=== PATIENT | male | born 2000 | race Caucasian/White ===

== ENCOUNTER 2018-05-09 00:09 | Emergency (ER) | payer SELFPAY ==
[2018-05-09] MEDS ORDERED: HYDROmorphone 1 MG/ML Syringe IVPUSH ONE ×2 (00:21→01:38)
[2018-05-09] MEDS ORDERED: Sodium Chloride 0.9% 1,000 ML IV ONE (00:21)
[2018-05-09] MEDS ORDERED: Ondansetron 4 MG/2 ML SDV IVPUSH ONE (00:25)
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
[2018-05-09] MEDS ORDERED: Bacitracin Oint 1 GM U/D Packet TOP ONE (01:32)
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
== END 2018-05-09 02:05 | disposition home or self-care (01) ==
LOC: MW.ED 00:09
DX: S00.83XA Contusion of other part of head, initial encounter (principal); S00.531A Contusion of lip, initial encounter; V29.40XA Motorcycle driver injured in collision with unspecified motor vehicles in traffic accident, initial encounter
CPT/HCPCS: 70450; 72125; 73030; 73090; 73130; 73562; 96361; 96374; 96375; 96376; 99284; J1170; J2405; J7040

== ENCOUNTER 2019-11-30 03:10 | Emergency (ER) | payer SELFPAY ==
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
[2019-11-30] MEDS ORDERED: Sodium Chloride 0.9% 1,000 ML IV ONE (03:40)
--- NOTE | 2019-11-30 03:49 | CR ---
INDICATION: Chest pain TECHNIQUE: Chest radiograph 1 view COMPARISON: None FINDINGS: Mediastinum: The mediastinum is normal in appearance. The heart silhouette is normal in size and morphology. Lung: Both lungs are unremarkable in appearance. No sign of pleural effusion seen. No pneumothorax is identified. Bone and Soft tissue: Unremarkable for age. IMPRESSION: 1. No acute cardiopulmonary disease is seen. Dictated by: Markell Bobby MD @ 11/30/2019 03:47:00 (Electronically Signed)
[2019-11-30 03:56] LABS: ACETAMINOPHEN <2.0 ug/mL; BLOOD UREA NITROGEN,BUN 21 mg/dL (7.0-18.0); CARBON DIOXIDE,CO2 26.5 mmol/L (21.0-32.0); CHLORIDE,CL 104 mmol/L (98-107); GLUCOSE RANDOM 168 mg/dL (74-106); POTASSIUM,K 4.9 mmol/L (3.5-5.1); SODIUM,NA 141 mmol/L (136-148)
== END 2019-11-30 06:48 | disposition home or self-care (01) ==
LOC: MW.ED 03:10
DX: T40.5X1A Poisoning by cocaine, accidental (unintentional), initial encounter (principal)
CPT/HCPCS: 36415; 71045; 80053; 80305; 80307; 85025; 93005; 96360; 99285; J7030; 99284

== ENCOUNTER 2020-07-01 19:44 | Emergency (ER) | payer SELFPAY ==
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
--- NOTE | 2020-07-01 21:46 | CR ---
Right knee: AP, lateral and sunrise patellar views of the right knee were obtained. Comparison: Previous right knee study of 05/09/18. Small bony density is noted off the medial patella which is well corticated and appears old and believed to be incidental. This is stable from previous exam. Patellofemoral joint is preserved. Possible minimal joint effusion. Medial and lateral joint compartments are maintained in height. Impression: 1. Possible small joint effusion. 2. Stable bony density off the medial patella. 3. No acute bony abnormality is appreciated. Diagnostic code #2 This report was dictated in MDT
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
== END 2020-07-01 23:00 | disposition home or self-care (01) ==
LOC: MW.ED 19:44
DX: S83.91XA Sprain of unspecified site of right knee, initial encounter (principal); F17.210 Nicotine dependence, cigarettes, uncomplicated; W50.0XXA Accidental hit or strike by another person, initial encounter
CPT/HCPCS: 73562-26-RT; 73562-RT; 93971-26-RT; 93971-RT; 99283; 99284-25

== ENCOUNTER 2025-05-09 19:18 | Inpatient (IN) | payer SELFPAY ==
[2025-05-09] MEDS: Ondansetron 4 MG/2 ML SDV IVPUSH ONE (19:44)
[2025-05-09] MEDS: Ketorolac 30 MG/ML SDV IVPUSH ONE (19:44)
[2025-05-09 19:54] LABS: MEAN PLATELET VOLUME 9.9 fL (9.4-12.4); NRBC ABSOLUTE 0.00 K/uL (0.00-0.02); NRBC PERCENT 0.0 /100WBC (0.0-0.2); PLATELET COUNT,PLT 321 K/uL (150-400); RED BLOOD CELL COUNT 4.63 M/uL (4.52-5.90); WHITE BLOOD CELL COUNT,WBC 19.79 K/uL (3.9-11.3)
[2025-05-09 20:21] LABS: A/G RATIO 0.6 (0.9-1.6); ALANINE AMINOTRANSFERASE,ALT 39.0 IU/L (14-63); ASPARTATE AMNIOTRANSFERASE,AST 21.0 IU/L (15-37); BILIRUBIN TOTAL 0.5 mg/dL (0.2-1.0); BLOOD UREA NITROGEN,BUN 8.0 mg/dL (7.0-18.0); CARBON DIOXIDE,CO2 28.2 mmol/L (21.0-32.0); CHLORIDE,CL 95.0 mmol/L (98-107); CREATININE 1.1 mg/dL (0.8-1.3); EST CRCL DRUG DOSING (CG) 131.56 mL/min; GLUCOSE RANDOM 102.0 mg/dL (74-106); POTASSIUM,K 3.3 mmol/L (3.5-5.1); PROTEIN TOTAL,TP 6.9 g/dL (6.4-8.2); SODIUM,NA 133.0 mmol/L (136-148)
[2025-05-09 20:24] LABS: LACTIC ACID 0.7 mmol/L (0.4-2.0)
[2025-05-09 20:27] LABS: BAND ABSOLUTE MAN 0.40; BAND PERCENT MAN 2 %; EOSINOPHILS ABSOLUTE MAN 0.20 K/uL (0.00-0.45); EOSINOPHILS PERCENT MAN 1 % (0-6); LYMPHOCYTES ABSOLUTE MAN 2.97 K/uL (1.00-4.80); LYMPHOCYTES PERCENT MAN 15 % (24-44); MONOCYTES ABSOLUTE MAN 1.98 K/uL (0.00-0.80); MONOCYTES PERCENT MAN 10 % (0-8); SEG NEUTROPHILS ABSOLUTE MAN 14.25 K/uL (1.80-7.70); SEG NEUTROPHILS PERCENT MAN 72 % (41-71)
[2025-05-09 20:29] LABS: ESTIMATED GFR 95.0 mL/min (>60)
[2025-05-09] MEDS: Iopamidol 755 Mg/ML 100 ML Bottle IVPUSH ONE (20:47)
[2025-05-09 21:17] LABS: APPEARANCE,URINE CLEAR; GLUCOSE,URINE NEGATIVE (NEGATIVE); OCCULT BLOOD,URINE NEGATIVE (NEGATIVE)
[2025-05-09] MEDS ORDERED: Ondansetron 4 MG/2 ML SDV IVPUSH PRN (22:35)
[2025-05-09] MEDS ORDERED: Naloxone 0.4 MG/ML SDV IVPUSH PRN (22:39)
[2025-05-09] MEDS: NS with KCl 40mEq 1,000 ML IV SCH (22:54)
[2025-05-09] MEDS ORDERED: Sodium Chloride 0.9% 10 ML Syringe FLUSH PRN (23:15)
[2025-05-09] MEDS ORDERED: Sodium Chloride 0.9% 2.5 ML Syringe FLUSH PRN (23:15)
[2025-05-10 05:47] LABS: MEAN PLATELET VOLUME 10.1 fL (9.4-12.4); NRBC ABSOLUTE 0.00 K/uL (0.00-0.02); NRBC PERCENT 0.0 /100WBC (0.0-0.2); PLATELET COUNT,PLT 261 K/uL (150-400); RED BLOOD CELL COUNT 3.88 M/uL (4.52-5.90); WHITE BLOOD CELL COUNT,WBC 16.41 K/uL (3.9-11.3)
[2025-05-10 06:06] LABS: BAND ABSOLUTE MAN 0.49; BAND PERCENT MAN 3 %; EOSINOPHILS ABSOLUTE MAN 0.16 K/uL (0.00-0.45); EOSINOPHILS PERCENT MAN 1 % (0-6); LYMPHOCYTES ABSOLUTE MAN 1.81 K/uL (1.00-4.80); LYMPHOCYTES PERCENT MAN 11 % (24-44); MONOCYTES ABSOLUTE MAN 1.64 K/uL (0.00-0.80); MONOCYTES PERCENT MAN 10 % (0-8); SEG NEUTROPHILS ABSOLUTE MAN 12.31 K/uL (1.80-7.70); SEG NEUTROPHILS PERCENT MAN 75 % (41-71)
[2025-05-10 06:10] LABS: A/G RATIO 0.5 (0.9-1.6); ALANINE AMINOTRANSFERASE,ALT 29.0 IU/L (14-63); ASPARTATE AMNIOTRANSFERASE,AST 14.0 IU/L (15-37); BILIRUBIN TOTAL 0.5 mg/dL (0.2-1.0); BLOOD UREA NITROGEN,BUN 7.0 mg/dL (7.0-18.0); CARBON DIOXIDE,CO2 26.5 mmol/L (21.0-32.0); CHLORIDE,CL 102.0 mmol/L (98-107); CREATININE 1.4 mg/dL (0.8-1.3); EST CRCL DRUG DOSING (CG) 100.77 mL/min; GLUCOSE RANDOM 101.0 mg/dL (74-106); POTASSIUM,K 3.7 mmol/L (3.5-5.1); PROTEIN TOTAL,TP 5.5 g/dL (6.4-8.2); SODIUM,NA 136.0 mmol/L (136-148)
[2025-05-10 06:11] LABS: ESTIMATED GFR 71.0 mL/min (>60)
[2025-05-11 05:57] LABS: MEAN PLATELET VOLUME 9.6 fL (9.4-12.4); NRBC ABSOLUTE 0.00 K/uL (0.00-0.02); NRBC PERCENT 0.0 /100WBC (0.0-0.2); PLATELET COUNT,PLT 263 K/uL (150-400); RED BLOOD CELL COUNT 3.95 M/uL (4.52-5.90); WHITE BLOOD CELL COUNT,WBC 14.32 K/uL (3.9-11.3)
[2025-05-11 06:16] LABS: BLOOD UREA NITROGEN,BUN 3.0 mg/dL (7.0-18.0); CARBON DIOXIDE,CO2 29.0 mmol/L (21.0-32.0); CHLORIDE,CL 102.0 mmol/L (98-107); CREATININE 0.9 mg/dL (0.8-1.3); EST CRCL DRUG DOSING (CG) 156.75 mL/min; GLUCOSE RANDOM 99.0 mg/dL (74-106); POTASSIUM,K 3.3 mmol/L (3.5-5.1); SODIUM,NA 137.0 mmol/L (136-148)
[2025-05-11 06:23] LABS: ESTIMATED GFR 121.0 mL/min (>60)
[2025-05-11 06:57] LABS: BAND ABSOLUTE MAN 4.44; BAND PERCENT MAN 31 %; EOSINOPHILS ABSOLUTE MAN 0.57 K/uL (0.00-0.45); EOSINOPHILS PERCENT MAN 4 % (0-6); LYMPHOCYTES ABSOLUTE MAN 3.15 K/uL (1.00-4.80); LYMPHOCYTES PERCENT MAN 22 % (24-44); METAMYELOCYTE ABSOLUTE MAN 0.57; METAMYELOCYTE PERCENT MAN 4 %; MONOCYTES ABSOLUTE MAN 0.57 K/uL (0.00-0.80); MONOCYTES PERCENT MAN 4 % (0-8); SEG NEUTROPHILS ABSOLUTE MAN 4.87 K/uL (1.80-7.70); SEG NEUTROPHILS PERCENT MAN 34 % (41-71)
[2025-05-11 06:59] LABS: MYELOCYTE ABSOLUTE MAN 0.14; MYELOCYTE PERCENT MAN 1 %
[2025-05-11] MEDS: Potassium Chloride 20 MEQ Tab.ER PO ONE (09:14)
== END 2025-05-11 13:02 | disposition home or self-care (01) | DRG 392 ==
LOC: MW.ED 19:18 → OBSVTOIN 21:22 → MW.MS 21:22
PROVIDERS: ADMIT Internal Medicine; ATTEND Internal Medicine
DX: K52.9 Noninfective gastroenteritis and colitis, unspecified (principal)
CPT/HCPCS: 36415; 74177; 74177-26; 80048; 80053; 81003; 82947; 83605; 83690; 83735; 85025; 87040; 87045; 87046; 87324; 87328; 87329; 87449; 87899; 96361; 96365; 96366; 96367; 96368; 96375; 99284; 99285-25; A9270-GY; G0378; J1885; J2405; J2543; J3480; J7030; Q9967

== ENCOUNTER 2025-06-21 17:58 | Emergency (ER) | payer SELFPAY ==
[2025-06-21] MEDS ORDERED: Sodium Chloride 0.9% 10 ML Syringe FLUSH PRN (18:13)
[2025-06-21] MEDS ORDERED: Sodium Chloride 0.9% 2.5 ML Syringe FLUSH PRN (18:13)
[2025-06-21] MEDS: Ketorolac 30 MG/ML SDV IVPUSH ONE (18:38)
[2025-06-21] MEDS: Ondansetron 4 MG/2 ML SDV IVPUSH ONE (18:38)
[2025-06-21 18:43] LABS: MEAN PLATELET VOLUME 10.3 fL (9.4-12.4); NRBC ABSOLUTE 0.02 K/uL (0.00-0.02); NRBC PERCENT 0.1 /100WBC (0.0-0.2); PLATELET COUNT,PLT 279 K/uL (150-400); RED BLOOD CELL COUNT 4.18 M/uL (4.52-5.90); WHITE BLOOD CELL COUNT,WBC 21.52 K/uL (3.9-11.3)
[2025-06-21 18:57] LABS: INR 1.33 (0.86-1.11)
[2025-06-21 19:14] LABS: A/G RATIO 0.6 (0.9-1.6); ALANINE AMINOTRANSFERASE,ALT 18 IU/L (14-63); ASPARTATE AMNIOTRANSFERASE,AST 24 IU/L (15-37); BILIRUBIN TOTAL 0.7 mg/dL (0.2-1.0); BLOOD UREA NITROGEN,BUN 7 mg/dL (7.0-18.0); CARBON DIOXIDE,CO2 23.6 mmol/L (21.0-32.0); CHLORIDE,CL 96 mmol/L (98-107); CREATININE 1.2 mg/dL (0.8-1.3); GLUCOSE RANDOM 185 mg/dL (74-106); POTASSIUM,K 3.5 mmol/L (3.5-5.1); PROTEIN TOTAL,TP 6.9 g/dL (6.4-8.2); SODIUM,NA 131 mmol/L (136-148)
[2025-06-21 19:24] LABS: BAND ABSOLUTE MAN 1.29; BAND PERCENT MAN 6 %; SEG NEUTROPHILS ABSOLUTE MAN 15.71 K/uL (1.80-7.70); SEG NEUTROPHILS PERCENT MAN 73 % (41-71)
[2025-06-21 19:24] LABS: APPEARANCE,URINE CLEAR; GLUCOSE,URINE NEGATIVE (NEGATIVE); OCCULT BLOOD,URINE NEGATIVE (NEGATIVE)
[2025-06-21 19:25] LABS: EOSINOPHILS ABSOLUTE MAN 0.22 K/uL (0.00-0.45); EOSINOPHILS PERCENT MAN 1 % (0-6); LYMPHOCYTES ABSOLUTE MAN 1.72 K/uL (1.00-4.80); LYMPHOCYTES PERCENT MAN 8 % (24-44); MONOCYTES ABSOLUTE MAN 2.58 K/uL (0.00-0.80); MONOCYTES PERCENT MAN 12 % (0-8)
[2025-06-21 19:31] LABS: EPITHELIAL CELLS,URINE NOT SEEN (NONE-FEW)
[2025-06-21 19:31] LABS: ESTIMATED GFR 86 mL/min (>60)
[2025-06-21] MEDS: Iopamidol 755 MG/ML 500 ML Multipack Bottle IVPUSH ONE (19:56)
[2025-06-21] MEDS: cefTRIAXone 2 GM in Water For Injection, Sterile 20 ML IVPUSH ONE (20:15)
[2025-06-21] MEDS: metroNIDAZOLE/Normal Saline 500 MG in Premix Bag 1 BAG IV ONE (20:15)
== END 2025-06-21 21:34 | disposition left against medical advice (07) ==
LOC: MW.ED 17:58
DX: K52.9 Noninfective gastroenteritis and colitis, unspecified (principal); E83.42 Hypomagnesemia
CPT/HCPCS: 36415; 74177; 80053; 81001; 83605; 83690; 83735; 85025; 85610; 85652; 86140; 87040; 96361; 96365; 96375; 99285; A4216; A9270; J0696; J1836; J1885; J2405; J7030; Q9967; 99283

== ENCOUNTER 2025-07-05 07:14 | Day surgery (SDC) | payer SELFPAY ==
[~2025-07-05 07:14] MED LIST: cefOXitin 2 GM in Water For Injection, Sterile 20 ML IVPUSH ONE
[2025-07-05] MEDS: Lactated Ringers 1,000 ML IV SCH (08:46)
[2025-07-05] MEDS ORDERED: Propofol 200 MG/20 ML SDV ONE ×2 (09:39→09:59)
== END 2025-07-05 10:57 | disposition home or self-care (01) ==
LOC: MW.SDS 07:14
PROVIDERS: ATTEND Surgery
DX: K29.80 Duodenitis without bleeding (principal); K29.50 Unspecified chronic gastritis without bleeding; K51.311 Ulcerative (chronic) rectosigmoiditis with rectal bleeding; K44.9 Diaphragmatic hernia without obstruction or gangrene; K21.9 Gastro-esophageal reflux disease without esophagitis; Z79.899 Other long term (current) drug therapy
CPT/HCPCS: 43239; 45331; 87324; J0694; J2003; J2704; J7120; 00813